=== PATIENT | female | born 1970 | race Caucasian/White ===

== ENCOUNTER 2017-07-31 15:38 | Emergency (ER) | payer BC ==
[2017-07-31 15:47] VITALS: BP 119/82
[2017-07-31] MEDS ORDERED: Lidocaine 2% VISCOUS* 15 ML UDC PO ONE (16:40)
--- NOTE | 2017-07-31 16:42 | UC ---
Throat Pain/Nasal Amando HPI - HPI Summary HPI Summary: Pt presents with sore throat x 24 hours. Pt states took APAP with improvement Pt was exposed to strep 14 days ago. no fevers, chills, rash. No ear pain. + sinus congestion and PND. No cough, congestion. Pt uses flonase and allergy med routinely. Pt states unable to take decongestant Pt is an RN Pt's medications reviewed at this visit - History of Current Complaint Chief Complaint: UCRespiratory Stated Complaint: SORE THROAT Time Seen by Provider: 07/31/17 16:34 Hx Obtained From: Patient Hx Last Menstrual Period: n/a ?: No Onset/Duration: Gradual Onset Severity: Moderate Pain Intensity: 6 Associated Signs & Symptoms: Negative: Wheezing, Sinus Discomfort, Fever - Allergies/Home Medications Allergies/Adverse Reactions: Allergies Allergy/AdvReac Type Severity Reaction Status Date / Time Azithromycin [From Zithromax] Allergy Severe Rash Verified 07/31/17 15:47 Penicillin V Allergy Severe Rash Verified 07/31/17 15:47 [From Penicil VK] Sulfa Antibiotics Allergy Severe Shortness Verified 07/31/17 15:47 of Breath Bupropion [From Wellbutrin] Allergy Unknown Verified 07/31/17 15:47 Reaction Details Sulfamethoxazole Allergy Swelling Verified 07/31/17 15:47 w/Trimethoprim Of [From Bactrim] Face,Lips,& Throat Venlafaxine [From Effexor] Allergy See Comment Verified 07/31/17 15:47 Amantadine AdvReac Intermediate Dizziness Verified 07/31/17 15:47 NSAIDs AdvReac See Comment Verified 07/31/17 15:47 Home Medications: Home Medications Budesonide/Formote 160/4.5(NF) [Symbicort 160/4.5 (NF)] 2 puff INH BID 07/31/17 [History Confirmed 07/31/17] Levocetirizine Dihydrochloride [Xyzal Allergy 24Hr] 5 mg PO DAILY 07/31/17 [ History Confirmed 07/31/17] Topiramate TAB(*) [Topamax 25 MG tab] 25 mg PO BEDTIME 07/31/17 [History Confirmed 07/31/17] PMH/Surg Hx/FS Hx/Imm Hx Previously Healthy: Yes - Surgical History Surgical History: Yes Surgery Procedure, Year, and Place: HYSTERECTOMY. TUBAL LIGATION - Family History Known Family History: Positive: Hypertension - Social History Occupation: Employed Full-time Lives: With Family Alcohol Use: Rare Substance Use Type: None Substance Use Comment - Amount & Last Used: unk Smoking Status (MU): Former Smoker Length of Time of Smoking/Using Tobacco: quit 2006 - Immunization History Most Recent Influenza Vaccination: not 2017 Most Recent Tetanus Shot: unsure Most Recent Pneumonia Vaccination: never Review of Systems Constitutional: Negative Eyes: Negative ENT: Sore Throat Respiratory: Negative All Other Systems Reviewed And Are Negative: Yes Physical Exam Triage Information Reviewed: Yes Appearance: Well-Appearing, No Pain Distress, Well-Nourished Vital Signs: Initial Vital Signs Temp 98.8 F 07/31/17 15:43 Pulse 90 07/31/17 15:43 Resp 16 07/31/17 15:43 BP 119/82 07/31/17 15:43 Pulse Ox 100 07/31/17 15:43 Vital Signs Reviewed: Yes Eye Exam: Normal Eyes: Positive: Conjunctiva Clear ENT Exam: Normal ENT: Positive: Normal ENT inspection, Hearing grossly normal, Pharyngeal erythema, Nasal drainage, TMs normal. Negative: Pharynx normal, TM bulging, Tonsillar swelling, Tonsillar exudate Dental Exam: Normal Neck exam: Normal Neck: Positive: Supple, Nontender, No Lymphadenopathy Respiratory Exam: Normal Respiratory: Positive: Chest non-tender, Lungs clear, Normal breath sounds Cardiovascular Exam: Normal Cardiovascular: Positive: RRR, No Murmur, Pulses Normal Abdominal Exam: Normal Abdomen Description: Positive: Nontender, No Organomegaly, Soft Bowel Sounds: Positive: Present Musculoskeletal Exam: Normal Musculoskeletal: Positive: Strength Intact Neurological Exam: Normal Neurological: Positive: Alert Psychological Exam: Normal Psychological: Positive: Normal Response To Family Skin Exam: Normal Skin: Positive: rashes Re-Evaluation - Re-Evaluation First Eval Comment: Pt states lidocaine helped but doesn't like how it made her feel - declined Rx Throat Pain/Nasal Course/Dx - Course Assessment/Plan: Pt with sore throat x 24 hours. Strep exposure. Pt with erythema, otherwise well appearing. strep neg. will culture. viscous lidocaine. motrin/apap. secretion precaution. pt in agreement with plan - Differential Dx/Diagnosis Provider Diagnoses: pharyngitis Discharge - Discharge Plan Condition: Stable Disposition: HOME Patient Education Materials: Pharyngitis (ED) Referrals: Lesley,Ira, MD [Primary Care Provider] - Additional Instructions: - Stay well hydrated. Drink plenty of non-alcoholic, non-caffinated beverages. - Gargle with warm, salt water 2-3 times a day. Okay to gargle with lidocaine as prescribed - Cold beverages may be soothing to your throat - popsicles, apple sauce, jello - Once you start to feel better, change your toothbrush and your pillowcase. These infections are spread by secretions - do NOT share eating or drinking utensils - clean items you share with other people such as cell phones, computer mouse, TV remote, computer tablets, etc - your throat sample has been sent for additional testing. If you need antibiotics, a member of our care team will contact you - this may take up to 48 hours - Alternate ibuprofen (Advil, Motrin) 600mg and Tylenol every 3 hours for pain or fever. Take with food. Do NOT take for more than 4-5 days. - continue to use flonase -call your doctor or return with questions or concerns
--- NOTE | 2017-08-03 07:10 | UC ---
Progress - Progress Note Progress Note: THROAT CX (-). Re-Evaluation - Re-Evaluation First Eval Comment: Pt states lidocaine helped but doesn't like how it made her feel - declined Rx
== END 2017-07-31 16:56 | disposition home or self-care (01) ==
LOC: UCCORT 15:38
DX: J02.9 Acute pharyngitis, unspecified (principal); Z88.1 Allergy status to other antibiotic agents; Z88.0 Allergy status to penicillin; Z88.2 Allergy status to sulfonamides; Z88.6 Allergy status to analgesic agent; Z88.8 Allergy status to other drugs, medicaments and biological substances; Z87.891 Personal history of nicotine dependence
CPT/HCPCS: 87070; 87651; 99212; G0463